=== PATIENT | male | born 1960 | race Caucasian/White ===

== ENCOUNTER → 2017-10-31 | Outpatient (CLI) | payer OTHER ==
[~2017-10-31] MED LIST: AMARYL2 MG PO; ANTIFUNGAL15 G1; ASPIRIN325 PO; CEPHALEXIN 500500 M1 PO; COUMADIN 5 MG TA5 M1; DEPO-TESTO100 MG/1 M IM; DOXYCYCLINE 10100 MG PO; ENOXAPARIN120 MG/0.8 SQ; GLUCOPHAGE1000 MG PO; GLUCOTROL10 MG PO; GLUCOTROL5 MG PO; HYDROCODONE-AP1 EAC6 PO; JANUVIA100 MG PO; KEFLEX500 MG PO; LEVOTHROID100 MC1 PO; LEVOTHYROXIN0.125 M1 PO; LISINOPRIL10 MG PO; LOVENOX; METANX TABLET1 EAC1 PO; METFORMIN HCL500 MG PO; NEURONTIN 300300 M1; NEURONTIN 300300 M1 PO; NIASPAN750 MG PO; ONGLYZA5 MG PO; PAXIL20 MG PO; SIMVASTATIN40 MG PO; SIMVASTATIN80 MG PO; TRIAMTERENE-HC1 EAC1 PO; ZETIA10 MG PO
== END ==
LOC: M.CT 08:13
DX: K11.9 Disease of salivary gland, unspecified (principal); R59.0 Localized enlarged lymph nodes; Z85.72 Personal history of non-Hodgkin lymphomas

== ENCOUNTER → 2017-11-04 | Outpatient (CLI) | payer OTHER ==
--- NOTE | 2017-11-08 14:45 | CNG ---
[address] [address] CYTO-NONGYN REPORT PROCEDURE Name: BELLO NAZARIO Room: [facility]#: [id number] Admission: 11/04/17 Date of : 56 Discharge: Report #: [id number] Path Case #: [id number] CYTOPATHOLOGY REPORT COLLECTION DATE: 11/04/2017 RECEIVED DATE: 11/04/2017 SUBMITTING PHYS: Dr. Konstantin Rooney OTHER PHYS: JOSELINE Dhaliwal Dr. CLINICAL HISTORY: 2.2 X 2.2 X 1.5 Left parotid mass SPECIMEN(S) RECEIVED: A.Fine needle aspiration, Left parotid * * * * * * * * * * * * FINAL DIAGNOSIS: A. Fine needle aspiration, Left parotid: Lymph node, favor benign. See comment. COMMENT: The smears, cell block and ThinPrep show abundant lymphoid cells without a significant epithelial component present and which generally has a mixed population appearance although tingible body macrophages are not easily identified. There are no significant numbers of eosinophils, plasma cells or neutrophils. A few aggregates are suggestive of granulomata. The clinical history of non-Hodgkin's lymphoma treated in 1994 with radiation to the right leg is noted (per history and physical by Dr. Heriberto Giron dated 03/2012). The cytologic findings are thought to best support a benign lymph node, however, if a more definitive exclusion of low grade hematopoietic disorder is desired, excision to include flow cytometry and cultures is recommended. Reviewed with Dr. Domingo Beltrán who agrees with the diagnosis. (HERNANDEZ:db; 11/07/2017) PATHOLOGIST: Arsh Torres M.D. REPORT ELECTRONICALLY SIGNED BY: Arsh Torres M.D. DATE/TIME: 11/08/2017 14:44 * * * * * * * * * * * * GROSS PATHOLOGY: A. Fine needle aspiration, Left parotid: The specimen is labeled "RoyalBello" and consists of four fixed slides and four air dried slides. Thirty-three mL of cloudy brown fluid in fixative from the needle rinse is also submitted and one ThinPrep slide and an alcohol fixed cell block were prepared from this material. (mm 11.04.2017) OCCUPANCY SPECIALIST(S): CAT Chang([facility]) [place] [address] CYTO-NONGYN REPORT PROCEDURE Name: BELLO NAZARIO Room: [facility]#: [id number] Admission: 11/04/17 Date of : 56 Discharge: Report #: [id number] Path Case #: [id number] INITIAL CPT CODE(S): A; 93129, 97460 Professional services performed by [facility] [address] Technical services performed by [facility] at [address] [place] [address]., [address], [place] [address]. [facility] [address] [place] [address], [address] [place] [address] PHONE: [phone] DIRECTOR: Ricky Dominguez M.D. * * * END OF REPORT * * *
== END | disposition home or self-care (01) ==
LOC: M.ULTRA 08:02
DX: K11.8 Other diseases of salivary glands (principal); Z85.72 Personal history of non-Hodgkin lymphomas; Z86.718 Personal history of other venous thrombosis and embolism; Z88.0 Allergy status to penicillin; Z88.1 Allergy status to other antibiotic agents; Z79.84 Long term (current) use of oral hypoglycemic drugs

== ENCOUNTER → 2018-02-15 | Outpatient (CLI) | payer OTHER | LOC: M.RAD 08:31 | DX: I25.9 Chronic ischemic heart disease, unspecified (principal); C81.01 Nodular lymphocyte predominant Hodgkin lymphoma, lymph nodes of head, face, and neck ==

== ENCOUNTER → 2018-12-27 | Outpatient (CLI) | payer OTHER ==
--- NOTE | 2018-12-27 15:50 | 2DMMODE ---
[place] [address] 2 D/M-MODE ECHOCARDIOGRAM Name: MOSES NAZARIO Room: [facility]#: [id number] Admission: 12/27/18 Attend Phys: Santiago Oreilly Discharge: Date of : 56 Date of Service: 12/27/18 1550 Report #: [id number] THIS REPORT FOR: //name// APPROVED REPORT Study performed: 12/27/2018 14:07:37 EXAM: Comprehensive 2D, Doppler, and color-flow Echocardiogram Patient Location: Out-Patient BSA: 2.24 HR: 90 bpm BP: 115/50 mmHg Other Information Study Quality: Good Indications CAD Hypertension/HDD 2D Dimensions IVSd: 11.57 (7-11mm) LVOT Diam: 20.22 (18-24mm) LVDd: 42.46 mm PWd: 8.94 (7-11mm) Ascending Ao: 31.85 (22-36mm) LVDs: 24.48 (25-40mm) Aortic Root: 26.95 mm Volumes Left Atrial Volume (Systole) LA ESV Index: 14.60 mL/m2 Aortic Valve AoV Peak Raf.: 1.32 m/s AO Peak Gr.: 6.97 mmHg LVOT Max P.48 mmHg AO Mean Gr.: 3.50 mmHg LVOT Mean P.95 mmHg LVOT Max V: 1.27 m/s AO V2 VTI: 20.69 cm LVOT Mean V: 0.78 m/s CHAITANYA (VTI): 3.50 cm2 LVOT V1 VTI: 22.53 cm Mitral Valve E/A Ratio: 0.87 MV Decel. Time: 258.99 ms MV E Max Raf.: 0.74 m/s MV PHT: 75.11 [place] [address] 2 D/M-MODE ECHOCARDIOGRAM Name: MOSES NAZARIO Room: [facility]#: [id number] Admission: 12/27/18 Attend Phys: Santiago Oreilly Discharge: Date of : 56 Date of Service: 12/27/18 1550 Report #: [id number] MVA (PHT): 2.93 cm2 TDI E/Lateral E': 8.22 E/Medial E': 7.40 Medial E' Raf.: 0.10 m/s Lateral E' Raf.: 0.09 m/s Pulmonary Valve PV Peak Raf.: 0.99 m/s PV Peak Gr.: 3.92 mmHg Tricuspid Valve RAP Estimate: 5.00 mmHg TR Peak Gr.: 20.34 mmHg RVSP: 25.34 mmHg PA Pressure: 25.34 mmHg Left Ventricle The left ventricle is normal size. There is normal LV segmental wall motion. There is normal left ventricular wall thickness. Left ventricular systolic function is normal. The left ventricular ejection fraction is within the normal range. LVEF is 60%. Grade I - abnormal relaxation pattern. Right Ventricle The right ventricle is normal size. The right ventricular systolic function is normal. Atria The left atrium size is normal. The right atrium size is normal. Aortic Valve Mild aortic valve sclerosis. No aortic regurgitation is present. There is no aortic valvular stenosis. Mitral Valve The mitral valve is normal in structure. Mild mitral regurgitation. No evidence of mitral valve stenosis. Tricuspid Valve The tricuspid valve is normal in structure. Mild tricuspid regurgitation. Pulmonic Valve The pulmonary valve is normal in structure. There is no pulmonic [place] [address] 2 D/M-MODE ECHOCARDIOGRAM Name: MOSES NAZARIO [id number] Admission: 12/27/18 Attend Phys: Santiago Oreilly Discharge: Date of : 56 Date of Service: 12/27/18 1550 Report #: [id number] Great Vessels The aortic root is normal in size. IVC is normal in size and collapses >50% with inspiration. Pericardium There is no pericardial effusion. <Conclusion> The left ventricle is normal size. There is normal left ventricular wall thickness. Left ventricular systolic function is normal. The left ventricular ejection fraction is within the normal range. LVEF is 60%. Grade I - abnormal relaxation pattern. The right ventricle is normal size. The left atrium size is normal. Mild aortic valve sclerosis. No aortic regurgitation is present. There is no aortic valvular stenosis. The mitral valve is normal in structure. Mild mitral regurgitation. The tricuspid valve is normal in structure. Mild tricuspid regurgitation. IVC is normal in size and collapses >50% with inspiration. There is no pericardial effusion. There is normal LV segmental wall motion. <ELECTRONICALLY SIGNED> By: Fernando Sinclair MD, FACC 12/27/18 1550 1550 1550 Fernando Sinclair MD, FACC /INF
== END ==
LOC: M.CRD 13:54
DX: I08.1 Rheumatic disorders of both mitral and tricuspid valves (principal); I25.10 Atherosclerotic heart disease of native coronary artery without angina pectoris; I10 Essential (primary) hypertension

== ENCOUNTER → 2019-03-22 | Outpatient (CLI) | payer OTHER | LOC: M.MRI 08:12 | DX: M75.101 Unspecified rotator cuff tear or rupture of right shoulder, not specified as traumatic (principal); M19.011 Primary osteoarthritis, right shoulder; I10 Essential (primary) hypertension; E11.9 Type 2 diabetes mellitus without complications; E78.5 Hyperlipidemia, unspecified; E03.9 Hypothyroidism, unspecified; E78.00 Pure hypercholesterolemia, unspecified; I25.10 Atherosclerotic heart disease of native coronary artery without angina pectoris; Z88.1 Allergy status to other antibiotic agents; Z88.0 Allergy status to penicillin; Z88.2 Allergy status to sulfonamides; Z79.899 Other long term (current) drug therapy ==

== ENCOUNTER → 2019-05-08 | Outpatient (CLI) | payer OTHER | LOC: M.ULTRA 07:30 | DX: M79.89 Other specified soft tissue disorders (principal) ==

== ENCOUNTER → 2019-08-03 | Outpatient (CLI) | payer OTHER ==
--- NOTE | 2019-08-03 17:12 | CARDNUC ---
[place] [address] CARDIAC NUCLEAR IMAGING REPORT Name: MOSES NAZARIO Room: [facility]#: [id number] Admission: 08/03/19 Attend Phys: Santiago Oreilly Discharge: Date of : 56 Date of Service: 08/03/19 1712 Report #: [id number] THIS REPORT FOR: //name// APPROVED REPORT Imaging Protocol: Rest Tc-99m/Stress Tc-99m 1 day Study performed: 08/03/2019 09:37:41 Indication: Chest pain Patient Location: Out-Patient Stress Tech: Mónica Chandler Stress Nurse: Kristi Dang RN NM Tech:MARY Mims Ht: 5 ft 10 in Wt: 223 lbs BSA: 2.19 m2 BMI: 31.99 Medical History Medical History: non hodgkins lymphoma, hyperlipidemia, hypertenson, pvd, diabetes Medications: zetia, lisinopril, simvastatin, xarelto Allergies: clinamycin, penicillin Cardiac Risk Factors: age, hyperlipidemia, hypertension, pvd, diabetes family hx Exercise History: Physically active Resting Data Rest SPECT myocardial perfusion imaging was performed in supine position 30 minutes following the intravenous injection of 11.6 mCi of Tc-99m Sestamibi. Time of rest injection: 804 Date: 08/03/2019 The images were gated to evaluate regional wall motion and calculate left ventricular ejection fraction. Administration Route: IV Administration Site: Right AC Exercise Stress At peak stress, the patient was injected intravenously with 35.0mCi of Tc-99m Sestamibi. Time of stress injection: 944 Date: 08/03/2019 Administration Route: IV Administration Site: Right AC Gated Stress SPECT was performed 30 minutes after stress injection. The images were gated to evaluate regional [place] [address] CARDIAC NUCLEAR IMAGING REPORT Name: MOSES NAZARIO [id number] Admission: 08/03/19 Attend Phys: Santiago Oreilly Discharge: Date of : 56 Date of Service: 08/03/19 1712 Report #: [id number] left ventricular ejection fraction. Prone imaging was performed. Stress Test Details Stress Test: Exercise stress testing was performed using a Aj protocol. HR Max Heart Rate (APMHR): 160 bpm Resting HR: 74 bpm Target HR (85% APMHR): 136 bpm Max HR Achieved: 146 bpm % of APMHR: 91 Recovery HR: 104 bpm BP Resting BP: 157/109 mmHg Max BP: 162/63 mmHg Recovery BP: 135/61 mmHg ECG Resting ECG: Sinus Rhythm, LBBB Stress ECG: Sinus Tachycardia,LBBB ST Change: None Arrhythmia: None Recovery ECG: Sinus Rhythm, LBBB Recovery ST Change: None Recovery Arrhythmia: None Clinical Reason for Termination: Patient Request Exercise duration: 7 min 40 sec Exercise capacity: 9.64 METs Functional Aerobic Impairment 91% Patient tolerated standard Aj protocol exercise without significant cardiac symptoms. Nurse Comments pt stopped due to unsteady gait on treadmill Stress ECG Conclusion The baseline 12-lead EKG shows sinus rhythm with left bundle-branch block. EKGs during and post exercise showed sinus rhythm and sinus tachycardia with left bundle-branch block. There were no stress-induced arrhythmias. Study Quality Study: Good Artifact: [place] [address] CARDIAC NUCLEAR IMAGING REPORT Name: MOSES NAZARIO Room: [facility]#: [id number] Admission: 08/03/19 Attend Phys: Santiago Oreilly Discharge: Date of : 56 Date of Service: 08/03/19 1712 Report #: [id number] Study Data Post stress, the left ventricular ejection was 68%.. TID = 0.96. Perfusion Perfusion images obtained in the supine position at rest and post stress show photopenia in the basal to mid inferior wall that resolves completely on post stress prone imaging suggesting diaphragmatic attenuation artifact. No other significant fixed or reversible defects are identified. Wall Motion Normal left ventricular wall motion. Nuclear Conclusion ECG Findings: non-diagnostic Clinical Findings: negative for ischemia Nuclear Findings: negative for ischemia Exercise Capacity: normal Left Ventricular Function: normal Risk Study: low Myocardial perfusion images show no defect to suggest infarct or ischemia. Left ventricular systolic function appears normal on gated studies. This is a low risk study. <Conclusion> The baseline 12-lead EKG shows sinus rhythm with left bundle-branch block. EKGs during and post exercise showed sinus rhythm and sinus tachycardia with left bundle-branch block. There were no stress-induced arrhythmias. <ELECTRONICALLY SIGNED> By: Tono Lozada MD, FACC 08/03/191711 11 11 Tono Lozada MD, FACC /INF
== END ==
LOC: M.NUC 07-03 08:29 → M.CRD 07-19 08:00 → M.NUC 07:47
DX: I25.10 Atherosclerotic heart disease of native coronary artery without angina pectoris (principal); R07.89 Other chest pain; E78.5 Hyperlipidemia, unspecified; I10 Essential (primary) hypertension; I73.9 Peripheral vascular disease, unspecified; E11.9 Type 2 diabetes mellitus without complications; Z79.899 Other long term (current) drug therapy

== ENCOUNTER → 2020-05-06 | Outpatient (CLI) | payer OTHER | LOC: M.MRI 08:02 | PROVIDERS: ATTEND Nurse Practitioner Family | DX: M51.17 Intervertebral disc disorders with radiculopathy, lumbosacral region (principal); M47.27 Other spondylosis with radiculopathy, lumbosacral region ==

== ENCOUNTER 2020-08-28 14:59 | Emergency (ER) | payer OTHER ==
[~2020-08-28] VITALS: Ht 180.3 cm; Wt 99.8 kg
[2020-08-28] MEDS ORDERED: NORCO 5-325 TA1 EAC2 PO (17:20)
[2020-08-28 17:45] VITALS: BP 154/80
== END 2020-08-28 18:09 | disposition home or self-care (01) ==
LOC: M.ERS 14:59
DX: S42.212A Unspecified displaced fracture of surgical neck of left humerus, initial encounter for closed fracture (principal); E11.9 Type 2 diabetes mellitus without complications; E66.9 Obesity, unspecified; I10 Essential (primary) hypertension; Z90.49 Acquired absence of other specified parts of digestive tract; Z79.899 Other long term (current) drug therapy; Z88.1 Allergy status to other antibiotic agents; Z88.0 Allergy status to penicillin; Z88.2 Allergy status to sulfonamides; W01.0XXA Fall on same level from slipping, tripping and stumbling without subsequent striking against object, initial encounter; Y93.89 Activity, other specified; Y92.89 Other specified places as the place of occurrence of the external cause; Y99.8 Other external cause status

== ENCOUNTER → 2021-01-30 | Outpatient (CLI) | payer OTHER ==
[~2021-01-30] MED LIST changes: +NORCO 5-325 TA1 EAC2 PO
== END ==
LOC: M.ULTRA 12:40
PROVIDERS: ATTEND Podiatrist Foot & Ankle Surgery
DX: I73.9 Peripheral vascular disease, unspecified (principal)

== ENCOUNTER 2021-02-20 07:05 | Emergency (ER) | payer OTHER ==
[~2021-02-20] VITALS: Ht 180.3 cm; Wt 96.2 kg
[2021-02-20] MEDS ORDERED: XARELTO10 M1 PO (07:14)
[2021-02-20] MEDS ORDERED: TRULICITY1.5 MG/0.5 SUBQ (07:14)
[2021-02-20 07:32] LABS: ABSOLUTE EOSINOPHILS 0.3 thou/uL (0.0-0.7); ABSOLUTE LYMPHOCYTES 1.6 thou/uL (0.8-5.3); ABSOLUTE NEUTROPHILS 3.8 thou/uL (1.6-8.1); BASOPHILS 0.7 %; EOSINOPHILS 4.5 %; HEMATOCRIT 46.8 % (42.0-52.0); HEMOGLOBIN 15.8 gm/dL (14.0-18.0); LYMPHOCYTES 23.5 %; MCH 32.7 pg (26.0-34.0); MCHC 33.8 g/dL (28.0-37.0); MCV 96.6 fL (80.0-100.0); MONOCYTES 14.6 %; MPV 6.5 fl. (7.2-11.1); NUCLEATED RBCS 0 /100WBC; PLATELET COUNT* 139 thou/uL (150-400); POLYS 56.7 %; RBC 4.84 mil/uL (4.50-6.00); RDW-CV 14.1 % (10.5-14.5); WBC 6.8 thou/uL (4.0-11.0)
[2021-02-20 07:39] LABS: CALCIUM 8.9 mg/dL (8.5-10.1); CREATININE 1.2 mg/dL (0.6-1.3); POTASSIUM 4.4 mmol/L (3.5-5.1); PROTIME 10.2 Seconds (9.20-11.50)
[2021-02-20 07:49] LABS: ALBUMIN 3.6 g/dL (3.4-5.0); MAGNESIUM 2.1 mg/dL (1.8-2.4); TOTAL BILIRUBIN 0.5 mg/dL (<0.1-1.0); TOTAL PROTEIN 6.6 g/dL (6.4-8.2)
[2021-02-20 10:38] VITALS: BP 124/69
--- NOTE | 2021-02-20 11:10 | EKG ---
[place] [address] ELECTROCARDIOGRAM REPORT Name: MOSES NAZARIO Room: [facility]#: [id number] Admission: 02/20/21 Attend Phys: Discharge: 02/20/21 Date of : 56 Date of Service: 02/20/21 0710 Report #: [id number] THIS REPORT FOR: //name// [facility] ED Test Date: 2021-02-20 Test Time: 07:10:18 Pat Name: MOSES NAZARIO Department: Room: Gender: Fern Gatherer: : 1960 Requested By: Steven Stauffer Order Number: [id number] MD: Joseph Mcnair Measurements Intervals [place] Rate: 79 P: 21 UT: 184 QRS: -32 QRSD: 110 T: 63 QT: 383 QTc: 440 Interpretive Statements Sinus rhythm Atrial premature complex poor wave progression Inferior infarct, old Baseline wander in lead(s) V1 Compared to ECG 04/10/2012 16:29:01 Atrial premature complex(es) now present Prolonged QT interval no longer present Electronically Signed On 02-20-2021 11:09:46 CDT by Joseph Mcnair [email or web address] <ELECTRONICALLY SIGNED> By: Joseph Mcnair MD, FACC 02/20/21 1109 0710 0710 Joseph Mcnair MD, FAC /EPI
--- NOTE | 2021-02-24 17:24 | CON ---
[address] [address] CONSULTATION Name: MOSES NAZARIO Room: [facility] Kerri#: [id number] Admission: 02/20/21 Attend Phys: Discharge: 02/20/21 Date of : 56 Report #: [id number] THIS REPORT FOR: cc: Al Saha Steve T. DO Blick, David R. MD [facility] ~ DOC #: [id number] Joseph Mcnair MD [facility] DATE OF CONSULTATION: 02/20/2021 HISTORY OF PRESENT ILLNESS: The patient is a 60-year-old white male who I was asked to see in the Emergency Room today after a complaint of chest pain. The patient had a previous cardiac catheterization here at [facility] in [address] Mays. Cardiac catheterization was performed because he complained of chest pain and he had a stress test that looked abnormal. The cardiac catheterization showed normal left ventricular function. There was a 30% narrowing in the mid LAD and 40% narrowing in the distal LAD. The circumflex had a 20% stenosis. The right coronary artery had only plaques. It is felt that his chest pain was noncardiac. The patient last had a stress test in July 2019 here at [facility] using Lexiscan. This showed an ejection fraction of 68%. There is evidence of diaphragmatic attenuation, but no significant reversible ischemia. His echocardiogram in 2018 showed an ejection fraction of 60% with mild mitral regurgitation. The patient states he has done well since that time and goes for walks. He was doing well until this morning. He awakened with a sharp pain in his chest. He denied any shortness of breath, diaphoresis, nausea. The pain was not related to coughing. He has had no bleeding. Denies any trauma to his chest. He has had some sinus drainage recently. His brought him to the Emergency Room. He was admitted for further evaluation and treatment. He denies any exertional dyspnea, palpitations, syncope, peripheral edema. He does note he fell in August 2020 from a ladder and fractured his left arm. He is now undergoing therapy. PAST MEDICAL HISTORY: 1. Hypertension. 2. Diabetes. 3. Hyperlipidemia. PAST SURGICAL HISTORY: He has had previous cholecystectomy. MEDICATIONS: Include: 1. Lisinopril. 2. Zocor. 3. Zetia. 4. Metformin. 5[place] [address] CONSULTATION Name: MOSES NAZARIO Room: [facility]#: [id number] Admission: 02/20/21 Attend Phys: Discharge: 02/20/21 Date of : 56 Report #: [id number] ALLERGIES: To PENICILLIN and CLINDAMYCIN. FAMILY HISTORY: His father had bypass surgery. SOCIAL HISTORY: He is a retired revenue accountant, lives in [place] with his . No smoking or alcohol abuse. REVIEW OF SYSTEMS: No history of stroke, asthma, liver disease, kidney disease, chronic skin condition, psychiatric illness. He apparently had non-Hodgkin's lymphoma in 1993, treated with chemotherapy. Last year, he was diagnosed with another type of lymphoma and is receiving oral medications. His previous ECG had revealed a left bundle-branch block. PHYSICAL EXAMINATION: VITAL SIGNS: His blood pressure is 130/60, pulse is 80. He is afebrile. HEENT: He is anicteric. Conjunctivae pink. Mucosa moist. NECK: Veins not distended. No carotid bruits. CHEST: Clear to auscultation. CARDIAC: Regular rate and rhythm. No murmurs. ABDOMEN: Soft. EXTREMITIES: Had no edema. Dorsalis pedis pulse 1+. SKIN: Cool and dry. NEUROLOGIC: Nonfocal. IMAGING AND LABORATORY DATA: ECG shows a sinus rhythm, left axis, and nonspecific intraventricular conduction defect. His workup in the Emergency Room, he had a portable chest x-ray which showed normal heart size and clear lung cheney. His lab work in the Emergency Room, sodium 139, creatinine 1.2. His troponins were all less than 0.06. BNP 127. His white blood cell count 6.8, hemoglobin 15.8. IMPRESSION AND RECOMMENDATIONS: 1. Chest pain. Atypical for angina. Previous heart catheterization showed no significant coronary artery disease. Nuclear stress test a little over a year ago showed no ischemia. I suspect his chest pain is noncardiac. At this time, I think it is reasonable to discharge the patient from the Emergency Room and have him follow up with his primary care physician for possible gastroesophageal reflux disease. 2. Hypertension. The patient is on an ANNE MARIE inhibitor. 3. Hyperlipidemia. The patient is on a statin drug [place] [address] CONSULTATION Name: MOSES NAZARIO Room: [facility] Kerri#: [id number] Admission: 02/20/21 Attend Phys: Discharge: 02/20/21 Date of : 56 Report #: [id number] 4. Diabetes. 5. History of lymphoma. The patient is followed by Oncology. 6. Recent fall with fractured left arm. The patient is currently undergoing therapy. Joseph Mcnair MD [facility] MIMA/MELVIN <ELECTRONICALLY SIGNED> By: Joseph Mcnair MD, [facility] 02/24/21 1724 0820 [id number] Mcnair MD, [facility] /nt
== END 2021-02-20 10:39 | disposition home or self-care (01) ==
LOC: M.ERS 07:05
PROVIDERS: Emergency Medicine Emergency Medical Services
DX: R07.89 Other chest pain (principal); K58.9 Irritable bowel syndrome, unspecified; I10 Essential (primary) hypertension; E11.40 Type 2 diabetes mellitus with diabetic neuropathy, unspecified; E66.01 Morbid (severe) obesity due to excess calories; Z88.1 Allergy status to other antibiotic agents; Z88.0 Allergy status to penicillin; Z88.2 Allergy status to sulfonamides; Z68.29 Body mass index [BMI] 29.0-29.9, adult; Z86.14 Personal history of Methicillin resistant Staphylococcus aureus infection; Z90.49 Acquired absence of other specified parts of digestive tract; Z86.718 Personal history of other venous thrombosis and embolism

== ENCOUNTER → 2021-06-11 | Outpatient (CLI) | payer OTHER ==
[~2021-06-11] MED LIST changes: +TRULICITY1.5 MG/0.5 SUBQ; +XARELTO10 M1 PO
== END ==
LOC: M.MRI 07:58
PROVIDERS: ATTEND Family Medicine
DX: M47.22 Other spondylosis with radiculopathy, cervical region (principal); M48.02 Spinal stenosis, cervical region; M54.2 Cervicalgia; R20.2 Paresthesia of skin; R22.31 Localized swelling, mass and lump, right upper limb